=== PATIENT | male | born 1960 | race Caucasian/White ===

== ENCOUNTER 2018-07-26 07:00 | Day surgery (SDC) | payer BC ==
[2018-07-25 12:17] VITALS: BMI 24.0
[~2018-07-26 07:00] MED LIST: Fluorouracil 100 MG, Enoxaparin Sodium 25 MG, EPINEPHrine 0.3 MG in Ophthalmic Irrigati... IRR SCH
[2018-07-26] MEDS ORDERED: Cyclopentolate 1% Opth Drop 2 ML BOT ONE (07:47)
[2018-07-26] MEDS ORDERED: Phenylephrine 2.5% Ophth Soln 5 ML BOT ONE (07:47)
[2018-07-26] MEDS ORDERED: Lidocaine 2% PF 5 ML VIAL ONE (09:24)
[2018-07-26] MEDS ORDERED: Midazolam HCl 2 mg/2 ml Vial ONE (09:24)
[2018-07-26] MEDS ORDERED: PROPOFOL 20 ML ONE (09:24)
[2018-07-26] MEDS ORDERED: Fentanyl 100 MCG/2 ML VIAL ONE (09:24)
--- NOTE | 2018-07-26 14:15 | OP ---
DATE OF PROCEDURE: 07/26/2018 PREOPERATIVE DIAGNOSIS: Macular hole, right eye. POSTOPERATIVE DIAGNOSIS: Macular hole, right eye. PROCEDURES PERFORMED: Pars plana vitrectomy and internal limiting membrane peel, right eye. ANESTHESIA: Local with monitored anesthesia care. PROCEDURE IN DETAIL: The patient was identified in the preoperative holding area. Appropriate informed consent for planned surgical procedure on the right eye had been obtained. The patient was transported to the operative suite, where appropriate cardiopulmonary monitoring was established. Local anesthesia obtained using retrobulbar modified Van Lint lid block using 50:50 mixture of 4% lidocaine and 0.75% bupivacaine. The patient was prepped and draped in the usual sterile manner for ophthalmic surgery on the right eye. Lid speculum was placed in the right eye. A 25-gauge trocar was placed through the conjunctivae and sclera superotemporally, inferotemporally, and superonasally. Infusion line was placed inferotemporally. Light pipe and vitreous cutter inserted into the eye. Core vitrectomy was performed. Posterior hyaloid face was elevated using vacuum suction, peeled across the macula using the vitrectomy cutter. Vitreous was trimmed into the periphery using wide-field viewing system. Indocyanine green dye was infused on the posterior pole x1 identifying the internal limiting membrane and epiretinal membrane. This was elevated using a membrane scraper and peeled across the macula in one contiguous sheet and complete air-fluid exchange was performed with 10 minutes being left for fluid to drain posteriorly. Prophylactic laser was placed behind the sclerotomy sites. 28% sulfur hexafluoride gas was infused into the eye. Trocars were removed. The eye was noted to retain pressure well. Retrobulbar Kenalog and subconjunctival Ancef were placed. Antibiotic ointment was placed and the eye was patched and shielded. The patient was taken to the postoperative recovery unit in good condition, having suffered no immediate perioperative complications. The patient was instructed to keep patch and shield on, avoid flat and back positioning, and followup appointment with Dr. Bustos. Job ID: [id number]
[2018-07-26] MEDS ORDERED: Maxitrol 0.1% Opth Oint 3.5 GM TUBE ONE (16:19)
[2018-07-26] MEDS ORDERED: Lidocaine 1% PF 5 ML VIAL ONE ×2 (16:19)
[2018-07-26] MEDS ORDERED: CEFAZOLIN 1 GM VIAL ONE (16:19)
[2018-07-26] MEDS ORDERED: Bupivacaine 0.75% 10 ML AMP ONE (16:19)
[2018-07-26] MEDS ORDERED: PROPOFOL 200 MG/20 ML VIAL ONE (16:19)
[2018-07-26] MEDS ORDERED: Triamcinolone 40 MG/ML VIAL ONE (16:19)
[2018-07-26] MEDS ORDERED: Indocyanine Green 25 MG/10 ML VIAL ONE (16:19)
[2018-07-26] MEDS ORDERED: Lidocaine 4% PF 5 ML AMP ONE (16:19)
== END 2018-07-26 11:30 | disposition home or self-care (01) ==
LOC: SDC 07:00
PROVIDERS: ATTEND Ophthalmology Retina Specialist
PROC: 08T43ZZ Resection of Right Vitreous, Percutaneous Approach (ICD-10-PCS; principal; 2018-07-26)
PROC: 08NE3ZZ Release Right Retina, Percutaneous Approach (ICD-10-PCS; principal; 2018-07-26)
DX: H35.341 Macular cyst, hole, or pseudohole, right eye (principal); Z79.899 Other long term (current) drug therapy; Z88.8 Allergy status to other drugs, medicaments and biological substances
CPT/HCPCS: 67025; J0171; J0690; J1650; J2001; J2250; J2704; J3010; J3301; J3490; J9190

== ENCOUNTER 2018-08-16 05:51 | Day surgery (SDC) | payer BC ==
[2018-08-15 10:25] VITALS: BMI 24.0
[2018-08-16] MEDS ORDERED: Phenylephrine 2.5% Ophth Soln 5 ML BOT ONE (05:59)
[2018-08-16] MEDS ORDERED: Cyclopentolate 1% Opth Drop 2 ML BOT ONE (05:59)
[2018-08-16] MEDS ORDERED: EPINEPHrine 0.3 MG in Ophthalmic Irrigation Solution 500 ML FS SCH (06:00)
[2018-08-16] MEDS ORDERED: Midazolam HCl 2 mg/2 ml Vial ONE (06:05)
[2018-08-16] MEDS ORDERED: PROPOFOL 20 ML ONE (06:05)
[2018-08-16] MEDS ORDERED: Fentanyl 100 MCG/2 ML VIAL ONE (06:05)
--- NOTE | 2018-08-16 09:31 | OP ---
DATE OF PROCEDURE: 08/16/2018 PREOPERATIVE DIAGNOSIS: Macular hole, right eye. POSTOPERATIVE DIAGNOSIS: Macular hole, right eye. PROCEDURE PERFORMED: Pars plana vitrectomy and internal limiting membrane peel, right eye. ANESTHESIA: Local with monitored anesthesia care. COMPLICATIONS: None. PROCEDURE IN DETAIL: The patient was identified in the preoperative holding area. Appropriate informed consent for the planned surgical procedure on the right eye had been obtained. The patient was transported to the operative suite, where appropriate cardiopulmonary monitoring was established. Local anesthesia obtained using retrobulbar block. The patient was prepped and draped in the usual sterile manner for ophthalmic surgery on the right eye. Lid speculum was placed in the right eye. A 25-gauge trocar was placed through the conjunctivae and sclera superotemporally, inferotemporally, and superonasally. Infusion line was placed inferotemporally. Light pipe and vitreous cutter inserted into the eye. Core vitrectomy was performed. Residual vitreous was removed from the periphery. Indocyanine green dye was infused on the posterior pole x1. This identified a previous internal limiting membrane peel. Additional internal limiting membrane was peeled from outside the central area. Complete air-fluid exchange was performed with 10 minutes being left for fluid to drain posteriorly. 16% propane gas was infused into the eye. Trocars were removed. Superior sclerotomy was suture closed. Retrobulbar Kenalog and subconjunctival Ancef were placed. Antibiotic ointment was placed. The eye was patched and shielded. The patient was advised to position face down. Followup appointment with Dr. Bustos. Job ID: [id number]
[2018-08-16] MEDS ORDERED: Bupivacaine 0.75% 10 ML AMP ONE (16:54)
[2018-08-16] MEDS ORDERED: Triamcinolone 40 MG/ML VIAL ONE (16:54)
[2018-08-16] MEDS ORDERED: Lidocaine 1% PF 5 ML VIAL ONE (16:54)
[2018-08-16] MEDS ORDERED: Lidocaine 4% PF 5 ML AMP ONE (16:54)
[2018-08-16] MEDS ORDERED: Indocyanine Green 25 MG/10 ML VIAL ONE (16:54)
[2018-08-16] MEDS ORDERED: Maxitrol 0.1% Opth Oint 3.5 GM TUBE ONE (16:54)
[2018-08-16] MEDS ORDERED: PROPOFOL 200 MG/20 ML VIAL ONE (16:54)
[2018-08-16] MEDS ORDERED: CEFAZOLIN 1 GM VIAL ONE (16:54)
== END 2018-08-16 09:50 | disposition home or self-care (01) ==
LOC: SDC 05:51
PROVIDERS: ATTEND Ophthalmology Retina Specialist
PROC: 08T43ZZ Resection of Right Vitreous, Percutaneous Approach (ICD-10-PCS; principal; 2018-08-16)
PROC: 08NE3ZZ Release Right Retina, Percutaneous Approach (ICD-10-PCS; principal; 2018-08-16)
DX: H35.341 Macular cyst, hole, or pseudohole, right eye (principal); Z79.1 Long term (current) use of non-steroidal anti-inflammatories (NSAID); Z79.899 Other long term (current) drug therapy; Z88.8 Allergy status to other drugs, medicaments and biological substances
CPT/HCPCS: 67025; J0171; J0690; J2001; J2250; J2704; J3010; J3301; J3490